=== PATIENT | female | born 1980 | race Caucasian/White ===

== ENCOUNTER 2017-04-27 17:44 | Inpatient (IN) | payer OTHER ==
[~2017-04-27] VITALS: Ht 160 cm; Wt 55.5 kg
[2017-04-27 18:34] LABS: HEMATOCRIT 42.2 % (36.0-46.0); MCH 31.8 PG (29.0-34.0); MCHC 35.3 G/DL (30.0-36.0); MCV 90.2 FL (83-99); MEAN PLAT.VOLUME 8.8 uM^3 (9.5-12.4); PLATELET COUNT 304 K/uL (156-360); RBC DIS.WIDTH-CV 16.1 % (11.8-14.6); RBC DIS.WIDTH-SD 52.2 % (39-53); RED BLOOD COUNT 4.68 M/uL (3.80-5.20); WHITE BLOOD COUNT 8.2 K/uL (4.1-10.2)
[2017-04-27 18:47] LABS: CHLORIDE 95 mEq/L (99-109); POTASSIUM 2.9 mEq/L (3.7-5.4); SODIUM 136 mEq/L (136-147)
[2017-04-27 18:49] LABS: GLUCOSE 111 mg/dL (70-99)
[2017-04-27 18:50] LABS: ANION GAP 19 MEQ/L (2-14)
[2017-04-27 18:51] LABS: TOTAL BILIRUBIN 1.7 mg/dL (0.0-1.0)
[2017-04-27 18:52] LABS: ALKALINE PHOSPHATASE 107 IU/L (3-129)
[2017-04-27 18:53] LABS: GFR ESTIMATE (CALCULATED) > 59 mL/min/
[2017-04-27 18:54] LABS: UREA NITROGEN (BUN) 6 mg/dL (9-23)
[2017-04-27 18:56] LABS: LIPASE 55 U/L (1.0-51.0)
[2017-04-27 19:03] LABS: QUANTITATIVE HCG < 4.0 MIU/ML
[2017-04-27 19:25] LABS: ADD MIUA? YES; BILIRUBIN SMALL; BLOOD SMALL; COLOR AMBER ((YELLOW)); GLUCOSE (STRIP) NEGATIVE; KETONES 5; LEUKOCYTES MODERATE; NITRITE POSITIVE; PROTEIN (STRIP) 100; SPECIFIC GRAVITY 1.024 (1.000-1.030)
[2017-04-27 19:39] LABS: EPITHELIAL CELLS 3+ /HPF; MUCUS NONE SEEN /LPF; WHITE BLOOD CELLS 15-20 /HPF (0-5)
[2017-04-27 19:40] LABS: BACTERIA 4+ /HPF; UCUL ADDED? YES
[2017-04-27 19:41] LABS: MAGNESIUM 1.8 mg/dL (1.3-2.7)
[2017-04-27 21:45] LABS: TROP-I INTERPRETATION NEGATIVE; TROPONIN-I < 0.01 ng/mL (0.0-0.30)
[2017-04-27 22:16] LABS: INFLUENZA A VIRAL ANTIGEN NEGATIVE; INFLUENZA B VIRAL ANTIGEN NEGATIVE
[2017-04-27 23:56] LABS: TROP-I INTERPRETATION NEGATIVE; TROPONIN-I 0.03 ng/mL (0.0-0.30)
[2017-04-28] VITALS (7 sets, daily range): BP systolic 136–154; BP diastolic 88–106
[2017-04-28 00:38] LABS: DIRECT BILIRUBIN 0.7 mg/dL (0.0-0.3)
[2017-04-28 01:17] LABS: SERUM ETHYL ALCOHOL 72 mg/dL
[2017-04-28 10:48] LABS: HBSG INDEX 0.19
[2017-04-28 10:49] LABS: ANTI-HEPATITIS A VIRUS (IGM) Nonreactive; HAV INDEX 0.12
[2017-04-28 10:50] LABS: ANTI-HEPATITIS B CORE (IGM) Nonreactive; HBC IgM INDEX 0.06
[2017-04-28 11:08] LABS: HPCA INDEX 5.64
[2017-04-28 12:53] LABS: ALKALINE PHOSPHATASE 93 IU/L (3-129); ANION GAP 9 MEQ/L (2-14); CHLORIDE 108 MEQ/L (99-109); GFR ESTIMATE (CALCULATED) > 59 mL/min/; GLUCOSE 96 mg/dL (70-99); SAMPLE HEMOLYSIS CHECK 0; SAMPLE ICTERIC CHECK 0; SAMPLE LIPEMIA CHECK 0; SODIUM 138 MEQ/L (136-147); TOTAL BILIRUBIN 1.4 MG/DL (0.0-1.0); UREA NITROGEN (BUN) 3 mg/dL (9-23)
[2017-04-29 03:16] VITALS: BP 106/67
[2017-04-29 07:09] LABS: ANION GAP 12 MEQ/L (2-14); CHLORIDE 109 MEQ/L (99-109); GFR ESTIMATE (CALCULATED) > 59 mL/min/; GLUCOSE 74 mg/dL (70-99); POTASSIUM 3.2 MEQ/L (3.7-5.4); SAMPLE HEMOLYSIS CHECK 0; SAMPLE ICTERIC CHECK 0; SAMPLE LIPEMIA CHECK 0; SODIUM 143 MEQ/L (136-147); UREA NITROGEN (BUN) 7 mg/dL (9-23)
[2017-04-29 07:24] LABS: HEMATOCRIT 31.3 % (36.0-46.0); MCH 32.8 PG (29.0-34.0); MCHC 34.2 G/DL (30.0-36.0); MEAN PLAT.VOLUME 9.2 uM^3 (9.5-12.4); PLAT.SUFFICIENCY ADEQUATE; RBC DIS.WIDTH-SD 59.5 % (39-53); WHITE BLOOD COUNT 4.6 K/uL (4.1-10.2)
[2017-04-29 07:28] LABS: PLATELET COUNT 189 K/uL (156-360); RED BLOOD COUNT 3.26 M/uL (3.80-5.20)
[2017-04-29 08:11] LABS: MAGNESIUM 1.9 mg/dl (1.3-2.7)
[2017-04-29 08:17] VITALS: BP 146/98
[2017-04-29 12:10] VITALS: BP 152/96
[2017-04-29 15:43] VITALS: BP 149/101
[2017-04-29 21:48] VITALS: BP 149/101
[2017-04-30 10:26] LABS: HIV INDEX 0.09; HIV-1/2 AB/AG COMBO Nonreactive
[2017-05-01 12:32] LABS: HCV RNA (LOG IU/mL) 6.92 (<1.18)
== END 2017-04-29 22:45 | disposition left against medical advice (07) | DRG 392 ==
LOC: EME 17:44 → EDOF 04-28 01:10 → 5SOUTH 04-28 01:10 → ENRESERV 04-28 01:11 → 5SOUTH 04-28 02:43
PROVIDERS: Family Medicine; Hospitalist; Physician Assistant; Physician Assistant Medical
DX: R10.11 Right upper quadrant pain (principal); N39.0 Urinary tract infection, site not specified; B96.20 Unspecified Escherichia coli [E. coli] as the cause of diseases classified elsewhere; R11.2 Nausea with vomiting, unspecified; E86.0 Dehydration; E87.6 Hypokalemia; R76.0 Raised antibody titer; F43.22 Adjustment disorder with anxiety; F10.239 Alcohol dependence with withdrawal, unspecified; Y90.3 Blood alcohol level of 60-79 mg/100 ml; K76.0 Fatty (change of) liver, not elsewhere classified; K21.9 Gastro-esophageal reflux disease without esophagitis; J45.909 Unspecified asthma, uncomplicated; F12.90 Cannabis use, unspecified, uncomplicated; F17.210 Nicotine dependence, cigarettes, uncomplicated; Z80.1 Family history of malignant neoplasm of trachea, bronchus and lung
CPT/HCPCS: 71020; 74177; 76705; 80048; 80053; 80074; 81003; 82248; 83690; 83735; 84484; 84702; 85027; 86703; 87077; 87086; 87186; 87502; 87522 90; 93005; 99281; 99285; C9113; G0480; J0696; J1170; J1650; J1885; J2060; J2270; J2405; J3010; J3411; J3475; J3480; J7030; J7050

== ENCOUNTER 2017-06-25 00:27 | Emergency (ER) | payer OTHER ==
[~2017-06-25] VITALS: Ht 160 cm; Wt 53.0 kg
[~2017-06-25 00:27] MED LIST: ENDOCET 5-3251 EACH PO; FLUOXETINE HCL20 MG PO; K-DUR20 MEQ PO; NICOTINE PATCH1 EAC2 TD; PROTONIX40 MG PO; THERAGRAN1 TABLET PO; ZOFRAN4 MG PO
[2017-06-25 01:11] LABS: BASOPHIL COUNT 0.1 K/uL (0-0.1); EOSINOPHIL (%) 0 % (0-5); HEMATOCRIT 49.1 % (36.0-46.0); IMMATURE GRANULOCYTE (%) 0.5 % (0.0-0.7); IMMATURE GRANULOCYTE COUNT 0.1 K/uL; INSTRUMENT ABS NEUTROPHIL CT 9.3 K/uL; LYMPHOCYTE COUNT 2.9 K/uL (1.0-2.8); MCH 31.9 PG (29.0-34.0); MCHC 35.4 G/DL (30.0-36.0); MEAN PLAT.VOLUME 9.1 uM^3 (9.5-12.4); MONOCYTE (%) 4.7 % (3-12); MONOCYTE COUNT 0.6 K/uL (0-0.8); NEUTROPHIL COUNT 9.3 K/uL (1.8-6.4); NRBC (%) 0.2 /100 WBC (0-0); PLATELET COUNT 519 K/uL (156-360); RBC DIS.WIDTH-SD 55.8 % (39-53)
[2017-06-25 01:12] LABS: MCV 89.9 FL (83-99); RED BLOOD COUNT 5.46 M/uL (3.80-5.20)
[2017-06-25 02:08] LABS: ADD MIUA? YES; BILIRUBIN NEGATIVE; BLOOD NEGATIVE; COLOR YELLOW ((YELLOW)); GLUCOSE (STRIP) >=500; KETONES 20; LEUKOCYTES NEGATIVE; NITRITE NEGATIVE; PROTEIN (STRIP) 100; SPECIFIC GRAVITY 1.027 (1.000-1.030); UROBILINOGEN 0.2 MG/DL (0.2-1.0)
[2017-06-25 02:14] LABS: CHLORIDE 99 mEq/L (99-109); POTASSIUM 3.3 mEq/L (3.7-5.4); SODIUM 136 mEq/L (136-147)
[2017-06-25 02:15] LABS: MAGNESIUM 1.8 mg/dL (1.3-2.7)
[2017-06-25 02:16] LABS: BACTERIA RARE /HPF; EPITHELIAL CELLS 2+ /HPF; MUCUS TRACE /LPF; RED BLOOD CELLS 0-5 /HPF (0-5); UCUL ADDED? NO; WHITE BLOOD CELLS 0-5 /HPF (0-5)
[2017-06-25 02:17] LABS: ADD MEDTOX COMMENT Y; AMPHETAMINE NEGATIVE (500 ng/mL); BARBITURATES NEGATIVE (200 ng/mL); BENZODIAZEPINES NEGATIVE (150 ng/mL); COCAINE NEGATIVE (150 ng/mL); INTERNAL CONTROLS VALID? YES; METHADONE NEGATIVE (200 ng/mL); METHAMPHETAMINE NEGATIVE (500 ng/mL); OPIATES (MORPHINE) PRESUMPTIVE POSITIVE (100 ng/mL); OXYCODONE NEGATIVE (100 ng/mL); PHENCYCLIDINE NEGATIVE (25 ng/mL); PROPOXYPHENE NEGATIVE (300 ng/mL); THC CANNABINOIDS PRESUMPTIVE POSITIVE (50 ng/mL); TRICYCLIC ANTIDEPRESSANTS NEGATIVE (300 ng/mL)
[2017-06-25 02:17] LABS: GLUCOSE 356 mg/dL (70-99)
[2017-06-25 02:18] LABS: ANION GAP 20 MEQ/L (2-14)
[2017-06-25 02:19] LABS: TOTAL BILIRUBIN 0.9 mg/dL (0.0-1.0)
[2017-06-25 02:20] LABS: ALKALINE PHOSPHATASE 78 IU/L (3-129); GFR ESTIMATE (CALCULATED) > 59 mL/min/
[2017-06-25 02:21] LABS: UREA NITROGEN (BUN) 11 mg/dL (9-23)
[2017-06-25 02:24] LABS: LIPASE 29 U/L (1.0-51.0)
[2017-06-25 02:30] LABS: QUANTITATIVE HCG < 4.0 MIU/ML
[2017-06-25] MEDS ORDERED: ZOFRAN ODT4 MG PO (04:48)
[2017-06-25 05:06] VITALS: BP 154/120
== END 2017-06-25 05:06 | disposition home or self-care (01) ==
LOC: EME 00:27
PROVIDERS: Emergency Medicine
DX: R11.2 Nausea with vomiting, unspecified (principal); R10.9 Unspecified abdominal pain; E87.6 Hypokalemia; T40.7X5A Adverse effect of cannabis (derivatives), initial encounter; K21.9 Gastro-esophageal reflux disease without esophagitis; J45.909 Unspecified asthma, uncomplicated; F17.200 Nicotine dependence, unspecified, uncomplicated; Z88.5 Allergy status to narcotic agent; Z88.8 Allergy status to other drugs, medicaments and biological substances
CPT/HCPCS: 80053; 81003; 83690; 83735; 84702; 84999; 85025; 99281; 99285; J1630; J2270; J2405; J7030; J7042; S0028

== ENCOUNTER 2017-07-06 02:12 | Emergency (ER) | payer OTHER ==
[~2017-07-06] VITALS: Ht 160 cm; Wt 55.1 kg
[~2017-07-06 02:12] MED LIST changes: +ZOFRAN ODT4 MG PO
[2017-07-06 03:09] LABS: ADD MIUA? YES; BILIRUBIN SMALL; BLOOD SMALL; COLOR YELLOW ((YELLOW)); GLUCOSE (STRIP) 50; KETONES 5; LEUKOCYTES NEGATIVE; NITRITE NEGATIVE; PROTEIN (STRIP) 100; SPECIFIC GRAVITY 1.021 (1.000-1.030)
[2017-07-06 03:14] LABS: HEMATOCRIT 44.4 % (36.0-46.0); MCH 32.4 PG (29.0-34.0); MCHC 34.7 G/DL (30.0-36.0); MCV 93.3 FL (83-99); MEAN PLAT.VOLUME 8.5 uM^3 (9.5-12.4); PLATELET COUNT 436 K/uL (156-360); RBC DIS.WIDTH-CV 18.1 % (11.8-14.6); RED BLOOD COUNT 4.76 M/uL (3.80-5.20); WHITE BLOOD COUNT 7.4 K/uL (4.1-10.2)
[2017-07-06 03:19] LABS: BACTERIA NONE SEEN /HPF; EPITHELIAL CELLS 3+ /HPF; HYALINE CASTS 0-5 /LPF; MUCUS 1+ /LPF; RED BLOOD CELLS 0-5 /HPF (0-5); UCUL ADDED? NO; WHITE BLOOD CELLS 0-5 /HPF (0-5)
[2017-07-06 03:26] LABS: CHLORIDE 97 mEq/L (99-109); POTASSIUM 2.9 mEq/L (3.7-5.4); SODIUM 142 mEq/L (136-147)
[2017-07-06 03:28] LABS: GLUCOSE 109 mg/dL (70-99)
[2017-07-06 03:29] LABS: ANION GAP 22 MEQ/L (2-14)
[2017-07-06 03:30] LABS: TOTAL BILIRUBIN 0.7 mg/dL (0.0-1.0)
[2017-07-06 03:31] LABS: ALKALINE PHOSPHATASE 136 IU/L (3-129)
[2017-07-06 03:32] LABS: GFR ESTIMATE (CALCULATED) > 59 mL/min/
[2017-07-06 03:33] LABS: UREA NITROGEN (BUN) 8 mg/dL (9-23)
[2017-07-06 03:35] LABS: LIPASE 29 U/L (1.0-51.0)
[2017-07-06 03:42] LABS: QUANTITATIVE HCG < 4.0 MIU/ML
[2017-07-06 04:48] LABS: SERUM ETHYL ALCOHOL 186 mg/dL
[2017-07-06] MEDS ORDERED: ZOFRAN ODT4 MG PO (05:12)
[2017-07-06] MEDS ORDERED: THIAMINE HCL100 MG PO (05:12)
[2017-07-06] MEDS ORDERED: LIBRIUM25 MG PO (05:12)
[2017-07-06 08:16] VITALS: BP 158/108
== END 2017-07-06 08:18 | disposition home or self-care (01) ==
LOC: EME 02:12
DX: R10.84 Generalized abdominal pain (principal); F10.10 Alcohol abuse, uncomplicated; E87.6 Hypokalemia; Y90.6 Blood alcohol level of 120-199 mg/100 ml; J45.909 Unspecified asthma, uncomplicated; K21.9 Gastro-esophageal reflux disease without esophagitis; F17.200 Nicotine dependence, unspecified, uncomplicated
CPT/HCPCS: 80053; 81003; 83690; 84702; 85027; 99281; 99285; G0480; J2060; J2405; J7030

== ENCOUNTER 2017-07-07 19:28 | Emergency (ER) | payer OTHER ==
[~2017-07-07] VITALS: Ht 160 cm; Wt 55.3 kg
[~2017-07-07 19:28] MED LIST changes: +LIBRIUM25 MG PO; +THIAMINE HCL100 MG PO
[2017-07-07 20:24] LABS: HEMATOCRIT 39.9 % (36.0-46.0); MCH 32.6 PG (29.0-34.0); MCHC 34.6 G/DL (30.0-36.0); MCV 94.3 FL (83-99); MEAN PLAT.VOLUME 8.4 uM^3 (9.5-12.4); PLATELET COUNT 358 K/uL (156-360); RBC DIS.WIDTH-CV 18.4 % (11.8-14.6); RBC DIS.WIDTH-SD 62.2 % (39-53); RED BLOOD COUNT 4.23 M/uL (3.80-5.20); WHITE BLOOD COUNT 5.8 K/uL (4.1-10.2)
[2017-07-07 20:34] LABS: CHLORIDE 101 mEq/L (99-109); POTASSIUM 2.6 mEq/L (3.7-5.4); SODIUM 140 mEq/L (136-147)
[2017-07-07 20:36] LABS: INTER. NORMALIZED RATIO 0.9; PROTHROMBIN TIME 10.7 SEC (10.2-12.9)
[2017-07-07 20:37] LABS: GLUCOSE 91 mg/dL (70-99)
[2017-07-07 20:38] LABS: ANION GAP 15 MEQ/L (2-14)
[2017-07-07 20:38] LABS: PTT 29.8 SEC (25-37)
[2017-07-07 20:40] LABS: ALKALINE PHOSPHATASE 120 IU/L (3-129); GFR ESTIMATE (CALCULATED) > 59 mL/min/; SERUM ETHYL ALCOHOL 265 mg/dL
[2017-07-07 20:42] LABS: UREA NITROGEN (BUN) 9 mg/dL (9-23)
[2017-07-07 20:44] LABS: LIPASE 47 U/L (1.0-51.0); TOTAL BILIRUBIN 1.6 mg/dL (0.0-1.0)
[2017-07-07 20:47] LABS: TROP-I INTERPRETATION NEGATIVE; TROPONIN-I < 0.01 ng/mL (0.0-0.30)
[2017-07-07 22:01] LABS: ADD MEDTOX COMMENT Y; AMPHETAMINE NEGATIVE (500 ng/mL); BARBITURATES NEGATIVE (200 ng/mL); BENZODIAZEPINES PRESUMPTIVE POSITIVE (150 ng/mL); COCAINE NEGATIVE (150 ng/mL); INTERNAL CONTROLS VALID? YES; METHADONE NEGATIVE (200 ng/mL); METHAMPHETAMINE NEGATIVE (500 ng/mL); OPIATES (MORPHINE) NEGATIVE (100 ng/mL); OXYCODONE NEGATIVE (100 ng/mL); PHENCYCLIDINE NEGATIVE (25 ng/mL); PROPOXYPHENE NEGATIVE (300 ng/mL); THC CANNABINOIDS PRESUMPTIVE POSITIVE (50 ng/mL); TRICYCLIC ANTIDEPRESSANTS NEGATIVE (300 ng/mL)
[2017-07-07 22:31] LABS: BENZODIAZEPINES, URINE SCREEN POSITIVE (200 ng/mL)
[2017-07-07 22:34] LABS: MAGNESIUM 2.1 mg/dL (1.3-2.7)
[2017-07-08 01:36] VITALS: BP 137/89
== END 2017-07-08 01:38 | disposition home or self-care (01) ==
LOC: EME 19:28
PROVIDERS: Emergency Medicine
DX: F41.9 Anxiety disorder, unspecified (principal); R10.9 Unspecified abdominal pain; F10.129 Alcohol abuse with intoxication, unspecified; E87.6 Hypokalemia; R45.851 Suicidal ideations; R51 Headache; M79.606 Pain in leg, unspecified; H57.10 Ocular pain, unspecified eye; M79.603 Pain in arm, unspecified; R07.9 Chest pain, unspecified; R11.2 Nausea with vomiting, unspecified; Y90.8 Blood alcohol level of 240 mg/100 ml or more; F17.200 Nicotine dependence, unspecified, uncomplicated
CPT/HCPCS: 71020; 80048; 80053; 83690; 83735; 84484; 84999; 85027; 85610; 85730; 93005; G0480; J3480